=== PATIENT | female | born 1965 | race American Indian/Alaskan Native ===

== ENCOUNTER → 2018-05-04 | Outpatient (CLI) | payer OTHER ==
[~2018-05-04] MED LIST: ALBU90OI INH; ALBU90OI6 INH; ASPI81CH PO; ATOR40TA PO; BENTYL10 MG PO; CARV6.25 PO; CITA20 PO; CLOP75 PO; DEXL60CA3; DULO30 PO; Dicyclomine HCl10 MG PO; ESTR2 PO; HYDCHL12.5 PO; HYDPAM25 PO; LEVSOD50 PO; LEVSOD75 PO; LINZESS290 MCG PO; METF500 PO; MONT10T PO; OXCA300 PO; OXYACE7.5T PO; OXYC5 PO; Omeprazole20 M1 PO; PROM25 PO; SUMA25 PO; ZOLP12.5 PO
== END | disposition home or self-care (01) ==
LOC: LAB SHORT 16:46 → OLS 16:46
PROVIDERS: Obstetrics & Gynecology Gynecology
DX: Z12.72 Encounter for screening for malignant neoplasm of vagina (principal)
CPT/HCPCS: 87624; G0123

== ENCOUNTER 2019-07-26 08:15 | Day surgery (SDC) | payer OTHER ==
[~2019-07-26] VITALS: Ht 170.2 cm; Wt 76.7 kg
[~2019-07-26 08:15] MED LIST changes: +FISH OIL PO
--- NOTE | 2019-07-26 09:02 | NUR ---
Patient up to Ambulate independently. Gait steady. History, Chart, Medications and Allergies reviewed before start of procedure.Lungs clear T/O to Auscultation. Patient confirms NPO status and agrees with scheduled surgery. Patient reports completing Chlorhexadine shower X2 prior to admission to hospital.Surgical site prepped with 2% Chlorhexidine cloth wipe. Patient States Post-Procedure ride home has been arranged.
--- NOTE | 2019-07-26 12:13 | NUR ---
Patient up to Ambulate independently. Gait steady. Discharge instructions reviewed with patient. Patient verbalizes understanding. Copy given to patient to take home. Patient States Post-Procedure ride home has been arranged. Discharged via wheelchair to private car for ride home.
== END 2019-07-26 22:42 | disposition home or self-care (01) ==
LOC: ORSCMMR 08:15 → ORD 09:45 → ORSCMMR 22:42
PROVIDERS: Surgery
PROC: BF031ZZ Plain Radiography of Gallbladder and Bile Ducts using Low Osmolar Contrast (ICD-10-PCS; principal; 2019-07-26 09:45)
PROC: 0FT44ZZ Resection of Gallbladder, Percutaneous Endoscopic Approach (ICD-10-PCS; principal; 2019-07-26 09:45)
DX: K82.8 Other specified diseases of gallbladder (principal); I10 Essential (primary) hypertension; I25.10 Atherosclerotic heart disease of native coronary artery without angina pectoris; I25.2 Old myocardial infarction; F17.210 Nicotine dependence, cigarettes, uncomplicated; Z79.899 Other long term (current) drug therapy; Z79.82 Long term (current) use of aspirin
CPT/HCPCS: 74300; 88304; C1729; J1100; J1885; J2250; J2405; J2704; J2710; J3010; J7030; J7120

== ENCOUNTER 2020-09-13 13:51 | Observation (INO) | payer OTHER ==
[~2020-09-13] VITALS: Ht 170.2 cm; Wt 74.1 kg
[~2020-09-13 13:51] MED LIST changes: +DEXL60CA3 PO
[2020-09-13 14:55] LABS: BASOPHILS ABSOLUTE AUTO 0.04 K/mm3 (0.00-0.23); BASOPHILS PERCENT AUTO 0 % (0-2); EOSINOPHILS ABSOLUTE AUTO 0.19 K/mm3 (0.00-0.68); EOSINOPHILS PERCENT AUTO 2 % (0-6); Hematocrit 41.6 % (33.0-51.0); IMMATURE GRAN ABSOLUTE AUTO 0.04 K/mm3 (0.00-0.10); IMMATURE GRAN PERCENT AUTO 0 % (0-1); LYMPHOCYTES ABSOLUTE AUTO 2.33 K/mm3 (0.84-5.20); LYMPHOCYTES PERCENT AUTO 23 % (21-46); MONOCYTES ABSOLUTE AUTO 0.89 K/mm3 (0.16-1.47); MONOCYTES PERCENT AUTO 9 % (4-13); Mean Corpuscular HGB 31.3 pg (26.0-34.0); Mean Corpuscular HGB Conc 36.1 g/dL (31.5-36.5); Mean Corpuscular Volume 87 fL (80-100); NEUTROPHILS ABSOLUTE AUTO 6.63 K/mm3 (1.96-9.15); NEUTROPHILS PERCENT AUTO 66 % (41-73); Platelet Count 274 K/mm3 (150-400); RDW Coefficient Variation 12.4 % (11.7-14.2); RDW Standard Deviation 39.9 fL (35.1-46.3); White Blood Cell Count 10.12 K/mm3 (4.00-11.30)
[2020-09-13 15:16] LABS: Alanine Aminotransfer (ALT/SGP 38 U/L (12-78); Albumin, Blood 3.8 g/dL (3.4-5.0); Albumin/Globulin Ratio 1.3 (0.8-1.8); Alk Phos 99 U/L (50-136); Anion Gap 5 mmol/L (6-16); Aspartate Aminotrans (AST/SGOT 36 U/L (12-37); Bilirubin, Total 0.5 mg/dL (0.1-1.0); Blood Urea Nitrogen 3 mg/dL (8-24); Bun/Creatinine Ratio 6.2 (12.0-20.0); CO2, Blood 32 mmol/L (21-32); Calcium, Blood 8.6 mg/dL (8.5-10.1); Chloride, Blood 86 mmol/L (98-108); Creatinine, Blood 0.49 mg/dL (0.40-1.00); Globulin, Blood 2.9 g/dL (2.2-4.0); Glomerular Filtration Rate >60 (60-); Glucose, Blood 93 mg/dL (70-99); Potassium, Blood 3.2 mmol/L (3.5-5.5); Sodium, Blood 123 mmol/L (136-145); Total Protein, Blood 6.7 g/dL (6.4-8.2)
[2020-09-13 17:10] LABS: Calcium, Ionized (POC) 1.06 mmol/L (1.10-1.46); Chloride (POC) 87 mmol/L (98-108); Creatinine (POC) 0.5 mg/dL (0.6-1.0); Glucose (ISTAT POC) 122 mg/dL (70-99); Potassium (POC) 3.8 mmol/L (3.5-5.5); Sodium (POC) 125 mmol/L (135-148); Total CO2 (POC) 25 mmol/L (21-32)
[2020-09-13 17:58] LABS: Ethanol (Alcohol), Blood, Med <3 mg/dL; Salicylate 2.6 mg/dL (2.8-20.0)
[2020-09-13 18:23] LABS: Acetaminophen, Random <2.0 ug/mL (10.0-30.0)
[2020-09-13 18:41] LABS: Source, Urine Clean Catch
[2020-09-13 18:43] LABS: Bilirubin, Urine Neg (Neg); Blood, Urine 1+ (Neg); Glucose Qualitative, Urine Neg (Neg); Ketones, Urine Neg (Neg); Leukocyte Esterase, Urine Neg (Neg); Nitrite, Urine Neg (Neg); Protein, Urine Neg (Neg); Urobilinogen, Urine NORM (Normal)
[2020-09-13 18:51] LABS: Appearance, Urine Clear (Clear); Color, Urine Yellow (P-Yellow)
[2020-09-13 18:52] LABS: Bacteria Rare /hpf; Squamous Epithelial Cells Few /hpf (Few); White Blood Cells, Urine 0-2 /hpf (0-5)
[2020-09-13 18:56] LABS: U Amphetamine Screen Not Detected; U Barbituate Screen Not Detected; U Benzodiazapine Screen DETECTED; U Buprenorphine Screen Not Detected; U Cannabinoids Screen DETECTED; U Cocaine Screen Not Detected; U Methadone Screen Not Detected; U Methamphetamine Screen Not Detected; U Opiates Screen DETECTED; U Oxycodone Screen Not Detected; U Phencyclidine Screen Not Detected; U Propoxyphene Screen Not Detected
[2020-09-13 18:58] LABS: Free Thyroxine 0.78 ng/dL (0.70-1.60)
[2020-09-13 19:00] LABS: Triiodothyronine, Free 2.37 pg/mL (2.18-3.98)
--- NOTE | 2020-09-13 20:00 | NUR ---
ASSUMED CARE: PT HAS SOME LABILE EMOTIONS BUT OVERALL IS PLEASANT AND COOPERATIVE WITH CARE. SBP STABLE IN THE 110S.HR IN THE 60S. LUNG SOUDNS CLEAR. SATS WELL ON RA. CONTINENT AND VOIDS WITH STANDBY ASSIST. NS INFUSING AT 321 MLS/HR. WILL CONTINUE TO MONITOR
[2020-09-13 22:16] LABS: Anion Gap 4 mmol/L (6-16); Blood Urea Nitrogen 3 mg/dL (8-24); Bun/Creatinine Ratio 5.9 (12.0-20.0); CO2, Blood 29 mmol/L (21-32); Calcium, Blood 7.8 mg/dL (8.5-10.1); Chloride, Blood 99 mmol/L (98-108); Creatinine, Blood 0.51 mg/dL (0.40-1.00); Glomerular Filtration Rate >60 (60-); Glucose, Blood 93 mg/dL (70-99); Potassium, Blood 4.1 mmol/L (3.5-5.5); Sodium, Blood 132 mmol/L (136-145)
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
--- NOTE | 2020-09-14 05:24 | NUR ---
PT CURRENTLY CALMER. USING CALL LIGHT APPROPRIATELY. BEHAVIORS MORE APPROPRIATE AND SHE IS BEING COOPERATIVE WITH CARE
[2020-09-14 08:10] LABS: Hematocrit 39.1 % (33.0-51.0); Hemoglobin 13.6 g/dL (11.5-16.0); Mean Corpuscular HGB 31.4 pg (26.0-34.0); Mean Corpuscular HGB Conc 34.8 g/dL (31.5-36.5); Mean Corpuscular Volume 90 fL (80-100); Mean Platelet Volume 7.9 fL (9.1-12.4); Platelet Count 251 K/mm3 (150-400); RDW Standard Deviation 42.9 fL (35.1-46.3); Red Blood Cell Count 4.33 M/mm3 (3.80-5.20); White Blood Cell Count 5.82 K/mm3 (4.00-11.30)
[2020-09-14 08:29] LABS: Anion Gap 2 mmol/L (6-16); Blood Urea Nitrogen 2 mg/dL (8-24); CO2, Blood 30 mmol/L (21-32); Calcium, Blood 7.9 mg/dL (8.5-10.1); Chloride, Blood 108 mmol/L (98-108); Glomerular Filtration Rate >60 (60-); Glucose, Blood 101 mg/dL (70-99); Sodium, Blood 140 mmol/L (136-145)
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
--- NOTE | 2020-09-14 13:50 | NUR ---
PT MORE CALM AT MOMENT, PACING IN ROOM, ORGANIZING ROOM. CLIPBOARD W PAPER AND PEN GIVEN ALONG W CHAIR. SIDEHAND DID WALK PT AROUND IN ICU WELL WHICH HELPED CALM PT
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
--- NOTE | 2020-09-14 16:57 | NUR ---
PT SOBBING IN ROOM NOW, PRESSURED, RAPID SPEECH WITH FLIGHT OF IDEAS. PT PULLED PANTS DOWN AND GRABBED HER ABD EXCLAIMING THAT HER ABD "HAS NEVER BEEN SO OUT OF SHAPE AND SWOLLEN BECAUSE YOU HAVE WITHHELD MY IBS MEDICATION".
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
--- NOTE | 2020-09-14 18:36 | NUR ---
TRANSFER ROOM CLEARED FOR SI RISK PRIOR TO PT TRANSFER TO MEDICAL FLOOR, CLOSET AND BATHROOM LOCKED
--- NOTE | 2020-09-14 18:46 | NUR ---
PT HUNG PHONE UP AND IS COOOPERATIVE, MILDLY RESTLESS, HYPERACTIVE, SPEECH UNCHANGED. REPORT GIVEN TO MED VILMA RN. PT TRANSFERED UP IN CARE OF REIMBURSEMENT COORDINATOR
--- NOTE | 2020-09-14 23:17 | NUR ---
PT. AGITATED, SPEAKING FAST, AND IRRATIONAL. PACING IN ROOM AND COMING OUT INTO THE HALLWAY MAKING REQUESTS OFTEN. SCHEDULED MEDS GIVEN THIS EVENING. NO EFFECT NOTED. NOTIFIED HOSPITALIST DR. GARCIA, ORDER FOR 50MG OF SEROQUEL NOW AND 25MG PRN. ADMINISTERED PER EMAR. WILL CONT TO MONITOR.
--- NOTE | 2020-09-15 00:01 | NUR ---
PT. REMAINS SLIGHTLY AGITATED AND CRYING ON/OFF. SPEAKING RAPIDLY WITH FLIGHT OF IDEAS. CONTS TO PACE IN ROOM. NURSING STAFF HAVE PROVIDED SNACKS AND DRINKS UPON REQUEST WELL EXTRA PILLOWS. WILL CONT TO MONITOR.
--- NOTE | 2020-09-15 05:19 | NUR ---
SHIFT SUMMARY- PT. A&OX3, DENIED SI. AWAKE MOST OF THE SHIFT RESTLESS WITH SOME AGITATION. PRESSURED SPEECH NOTED AND IRRATIONAL. MEDICATED PER EMAR WITH MINIMAL EFFECT. PT. WANTING TO USE THE BATHROOM OFTEN DURING THE NIGHT, BSC PROVIDED AT THE BEDSIDE FOR COMFORT. C/O PAIN TO LOWER BACK, MEDICATED WITH NORCO. PT. IN BED RESTING QUIETLY AT THIS TIME, NO APPARENT DISTRESS NOTED. CALL LIGHT WITHIN REACH AND SIDE RAILS UPX2. WILL CONT TO MONITOR.
[2020-09-15 06:08] LABS: Anion Gap 3 mmol/L (6-16); Blood Urea Nitrogen 7 mg/dL (8-24); Bun/Creatinine Ratio 11.8 (12.0-20.0); CO2, Blood 33 mmol/L (21-32); Calcium, Blood 8.6 mg/dL (8.5-10.1); Chloride, Blood 105 mmol/L (98-108); Creatinine, Blood 0.59 mg/dL (0.40-1.00); Glomerular Filtration Rate >60 (60-); Glucose, Blood 86 mg/dL (70-99); Potassium, Blood 4.3 mmol/L (3.5-5.5); Sodium, Blood 141 mmol/L (136-145)
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
--- NOTE | 2020-09-16 04:34 | NUR ---
SHIFT SUMMARY- PT. CALM LAST NIGHT, PLEASANT, AND COOPERATIVE WITH CARE. INDEPENDENT IN ROOM SCHEDULED MEDS GIVEN W/O DIFFICULTY. PT. SLEPT MOST OF THE NIGHT, NO APPARENT DISTRESS NOTED. VSS. CALL LIGHT WITHIN REACH AND SIDE RAILS UPX2. WILL CONT TO MONITOR.
[2020-09-16] MEDS ORDERED: ACET500 PO (10:06)
[2020-09-16] MEDS ORDERED: ALPR.25 PO (10:06)
[2020-09-16] MEDS ORDERED: HYOS0.375T PO (10:07)
[2020-09-16] MEDS ORDERED: Nicoderm Cq1 EAC1 TOP (10:07)
[2020-09-16] MEDS ORDERED: QUET100 PO (10:08)
[2020-09-16] MEDS ORDERED: XARELTO10 M1 PO (10:08)
--- NOTE | 2020-09-16 11:29 | NUR ---
Suicide Safety Plan interview. Patient reports she is not suicidal. She became sick and vomiting at home. She reports her slat levels became too high. Pt is oriented to person, place and time. She reports she sees Dr. hoffman at [place], and had been prescribed Seroquel and Trileptal. She reports doctor took her off Trileptal, and is remaining on Seroquel. 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 She was talkative and has "lots to live for". Pt reports she is her own guardian and son is coming to pick her up at noon. Clinical Coordinator informed of interview. Margaret Gray M.Ed., [facility], Dir. BH
--- NOTE | 2020-09-16 12:06 | NUR ---
DISCHARGE INSTRUCTIONS GIVEN TO PATIENT. ALL QUESTIONS ANSWERED. IV REMOVED THIS AM D/T LEAKING. PATIENT IN ROOM PREPARING TO DISCHARGE HOME. SON TO SIDE SAWYER PATIENT.
--- NOTE | 2020-09-16 12:23 | NUR ---
PATIENT DISCHARGED HOME WITH SON AT 1220.
== END 2020-09-16 12:18 | disposition home or self-care (01) ==
LOC: ER 13:51 → ICUW 17:53 → MEDS 17:53 → ICUW 18:57 → MEDS 09-14 18:51 → ENPENDDIS 09-16 10:35 → MEDS 09-16 12:18
PROVIDERS: Emergency Medicine; Nurse Practitioner Acute Care; ADMIT Internal Medicine
DX: E87.1 Hypo-osmolality and hyponatremia (principal); F31.2 Bipolar disorder, current episode manic severe with psychotic features; G92 Toxic encephalopathy; K58.9 Irritable bowel syndrome, unspecified; E03.9 Hypothyroidism, unspecified; I25.10 Atherosclerotic heart disease of native coronary artery without angina pectoris; G89.29 Other chronic pain; M54.9 Dorsalgia, unspecified; I25.2 Old myocardial infarction; J44.9 Chronic obstructive pulmonary disease, unspecified; E11.9 Type 2 diabetes mellitus without complications; K21.9 Gastro-esophageal reflux disease without esophagitis; F17.210 Nicotine dependence, cigarettes, uncomplicated; Z88.0 Allergy status to penicillin; Z88.5 Allergy status to narcotic agent; Z79.82 Long term (current) use of aspirin; Z79.899 Other long term (current) drug therapy; Z90.710 Acquired absence of both cervix and uterus; Z95.5 Presence of coronary angioplasty implant and graft; Z86.74 Personal history of sudden cardiac arrest; Z90.49 Acquired absence of other specified parts of digestive tract; Z23 Encounter for immunization; Z51.5 Encounter for palliative care
CPT/HCPCS: 36415; 70450; 80047; 80048; 80053; 81001; 84439; 84443; 84481; 85014; 85025; 85027; 96361; 96374; 99285-25; A9270; A9270-GY; G0480; J1630; J2405; J7030

== ENCOUNTER 2025-01-11 07:45 | Day surgery (SDC) | payer OTHER ==
[~2025-01-11] VITALS: Ht 170.2 cm; Wt 80.0 kg
[~2025-01-11 07:45] MED LIST changes: +ACET500 PO; +ALPR.25 PO; +Aspir 8181 MG PO; +Balanced Salt Epinephrine Irrigation Solution 500 mL IR SCH; +CARV3.125 PO; +Diazepam 5 MG Tab PO PRN; +Diazepam 5 MG Tab PO SCH; +HYDROCHLOROTH12.5 MG PO; +HYOS0.375T PO; +LIOT5 PO; +Lidocaine HCl/Pf 1% 5 ML VIAL ONE; +Lidocaine HCl/Pf 1% 5 ML VIAL XX SCH; +MAGNESIUM OXID400 M1 PO; +Moxifloxacin HCL 0.5 MG/0.1 ML 0.4MLSYR LEFTEYE SCH; +Nicoderm Cq1 EAC1 TOP; +Ondansetron 4 MG SoluTab MM PRN; +PHENYLEPHRINE\\TROPICAMIDE\\TETRACAINE OPHTHALMIC DILATING SOLN LEFTEYE PRN; +Povidone-Iodine 450 DROP/30 ML Solution LEFTEYE SCH; +Povidone-Iodine 450 DROP/30 ML Solution ONE; +QUET100 PO; +Tetracaine HCl/Pf 0.5% Opth Soln 4 ml ONE; +Triamcinolone Inj Susp 40 MG / ML 1ML Vial INJ SCH; +Triamcinolone Inj Susp 40 MG / ML 1ML Vial ONE; +Vitamin B Comple1 EA PO; +XARELTO10 M1 PO
[2025-01-11] MEDS ORDERED: Diazepam 10 MG Tab ONE (08:15)
[2025-01-11] MEDS ORDERED: Ondansetron HCl 2 MG / ML 2ML Vial ONE (08:35)
[2025-01-11 09:14] VITALS: BP 103/59
== END 2025-01-11 09:35 | disposition home or self-care (01) ==
LOC: ORSCSDS 07:45
PROVIDERS: Ophthalmology
PROC: 08RK3JZ Replacement of Left Lens with Synthetic Substitute, Percutaneous Approach (ICD-10-PCS; principal; 2025-01-11 09:00)
DX: H25.812 Combined forms of age-related cataract, left eye (principal); Z96.1 Presence of intraocular lens; J44.9 Chronic obstructive pulmonary disease, unspecified; I25.10 Atherosclerotic heart disease of native coronary artery without angina pectoris; E78.5 Hyperlipidemia, unspecified; I10 Essential (primary) hypertension; I25.2 Old myocardial infarction; F41.9 Anxiety disorder, unspecified; E03.9 Hypothyroidism, unspecified; Z79.84 Long term (current) use of oral hypoglycemic drugs; Z79.899 Other long term (current) drug therapy
CPT/HCPCS: 82947; A9270; J2003; J2405; J3301; V2632